=== PATIENT | male | born 1990 | race Caucasian/White ===

== ENCOUNTER 2022-11-09 19:03 | Emergency (ER) | payer MEDICAID, OTHER ==
[~2022-11-09] VITALS: Ht 175.3 cm; Wt 86.2 kg
[2022-11-09] MEDS ORDERED: ACETAMINOPHEN ES 500 MG TABLET PO ONE (19:15)
--- NOTE | 2022-11-09 19:30 | NUR ---
Pt is noted alert, responsive as report is received from Charge Nurse That Pt came in c/o Hip and aslo sucided with orders noted for 1:1sitter. [employer] is been notify off ordered. Pt care continue.
[2022-11-09 19:31] LABS: HEMATOCRIT 43.3 % (36.7-47.1); MEAN CORPUSCULAR HEMOGLOBIN 29.5 uug (23.8-33.4); MEAN CORPUSCULAR VOLUME 89.4 fL (73.0-96.2); PLATELET COUNT (AUTO) 281 K/uL (152-348)
[2022-11-09 19:36] LABS: *BILIRUBIN,URIN NEGATIVE (NEGATIVE); *BLOOD, URINE NEGATIVE (NEGATIVE); *CLARITY,URINE CLEAR (CLEAR); *COLOR,URINE YELLOW (YELLOW); *KETONES,URINE NEGATIVE (NEGATIVE); *UROBILINOGEN,URINE 0.2 E.U./dl (NORMAL); LEUKOCYTE ESTERASE ,URINE NEGATIVE (NEGATIVE); NITRITE, URINE NEGATIVE (NEGATIVE); UGLUCOSE NEGATIVE (NEGATIVE)
[2022-11-09 19:37] LABS: CARBON DIOXIDE 29 mmol/L (21-32); CHLORIDE 103 mmol/L (98-107); CREATININE 0.8 mg/dL (0.6-1.3); GLUCOSE 139 mg/dL (74-106); POTASSIUM 3.7 mmol/L (3.5-5.1); UREA NITROGEN, BLOOD 15 mg/dL (7-18)
[2022-11-09] MEDS ORDERED: ACETAMINOPHEN ES 500 MG TABLET ONE (19:40)
[2022-11-09 19:47] LABS: *AMPHETAMINE, URINE NEGATIVE (NEGATIVE); *CANNABINOID, URINE POSITIVE (NEGATIVE); *COCCAINE, URINE NEGATIVE (NEGATIVE); *PHENCYCLIDINE SCREEN,URINE NEGATIVE (NEGATIVE)
[2022-11-09 19:50] LABS: ALANINE AMINOTRANSFERASE 24 U/L (16-63); ALKALINE PHOSPHATASE 96 U/L (50-136); ASPARTATE AMINOTRANSFERASE 6 U/L (15-37); BILIRUBIN,DIRECT 0.1 mg/dL (0.0-0.2); BILIRUBIN,TOTAL 0.2 mg/dL (0.2-1.0); TOTAL PROTEIN, SERUM 6.9 g/dL (6.4-8.2)
[2022-11-09 19:51] LABS: ACETAMINOPHEN < 2.0 ug/mL (10-30)
--- NOTE | 2022-11-09 19:51 | NUR ---
Tyleno 1000mg PO given for pain 11/23. Pt care continue.
--- NOTE | 2022-11-09 20:00 | NUR ---
No sitter available for the patient at this time.
--- NOTE | 2022-11-09 21:11 | NUR ---
Called [facility] and spoke with Lori who requestyed facesheet and clinical to be fax to
--- NOTE | 2022-11-09 23:35 | NUR ---
Pt is sleeping with no S/S off dsitress as aweaits [facility]. Pt care continue.
--- NOTE | 2022-11-09 23:38 | NUR ---
Called [facility] and spoke to Lori who states they don't have any bed opening at this time and [place] is also full. Lori states we can check back 0900 today is any opening comes up.
--- NOTE | 2022-11-10 01:15 | NUR ---
Pt care continue as he is been monitor closely with no s/s off Distress or any new behavior issues at these hour as awaits placements.
--- NOTE | 2022-11-10 03:03 | NUR ---
Pt is sleeping as he is been monitor closely and assist as needed. Pt care continue as awauits Placements
--- NOTE | 2022-11-10 05:35 | NUR ---
Pt remain responsive as he is sleeping with no S/S off distress as awaits for placement.
--- NOTE | 2022-11-10 07:31 | NUR ---
Patient discharged to home in stable condition. Written and verbal after care instructions given. Patient verbalizes understanding of instructions. Stressed follow up or return to ER for worsening s/s.
[2022-11-10 07:32] VITALS: BP 143/88
== END 2022-11-10 07:32 | disposition home or self-care (01) ==
LOC: ER 19:03
DX: M25.551 Pain in right hip (principal); I10 Essential (primary) hypertension; F17.210 Nicotine dependence, cigarettes, uncomplicated; Z20.822 Contact with and (suspected) exposure to COVID-19
CPT/HCPCS: 36415; 73502; 85025; A4663; A9150; G0480